=== PATIENT | male | born 1975 | race Caucasian/White ===

== ENCOUNTER → 2022-04-28 | Outpatient (CLI) | payer OTHER ==
[~2022-04-28] MED LIST: CILGAVIMAB IM ONE; TIXAGEVIMAB IM ONE
== END | disposition home or self-care (01) ==
LOC: COVVAC 08:33
DX: U07.1 COVID-19 (principal)
CPT/HCPCS: M0220; Q0220